=== PATIENT | female | born 1940 | race Caucasian/White ===

== ENCOUNTER → 2017-05-02 | Outpatient (CLI) | payer MEDICARE, BC ==
[~2017-05-02] MED LIST: CALTRATE PLUS T1 TAB PO; D3 PO; EVISTA60 MG PO; FISH OIL 1,0001 CA2 PO; FISH OIL 1,0001 CAP PO; ICAPS AREDS SO1 EACH PO; ICAPS MV TAB1 TAB.EC PO; MULTI VITAMIN1 EACH PO; NEXIUM PO; PANTOPRAZOLE SO40 MG PO; PRILOSEC PO; SIMVASTATIN40 MG PO; VITAMIN D-3 4001 TAB PO; VITAMIN D400 UNI2 PO
--- NOTE | ~2017-05-02 | MY29 ---
[facility] A Service of [facility] RADIOLOGY TEXT RESULTS PATIENT: FERNANDEZ THORPE LOCATION: [facility] : 39 UNIT #: [id number] AGE: [address]: Levi Newman MD SEX: F ORDER DR: [id number] [facility]. [place], [place] [address] [id number] O MR#: [id number] Acc #: [id number] NAME: FERNANDEZ THORPE : 1940 SEX: F STUDY DATE/TIME: 05/02/2017 9:26 UNIT: [facility] ROOM: STUDY DESCRIPTION: MY ADILSON SCREENING W/ CAD BILAT Attending Physician: Levi Newman M.D. Ordering Physician: Levi Newman M.D. Primary Care Physician: Levi Newman M.D. MEDICAL IMAGING REPORT This report is preliminary unless electronic signature is present EXAM Bilateral digital screening mammogram with CAD 05/02/2017 INDICATIONS 76-year-old female for routine screening. No reported problems. No personal or family history of breast cancer. No surgeries. TECHNIQUE CC and MLO views of the breasts were obtained reviewed with an approved CAD device COMPARISON 03/10/2016, 12/05/2014, 12/03/2013 FINDINGS Breast parenchyma is composed of scattered fibroglandular densities and the pattern is unchanged. Mole markers present. There is no new dominant nodule, mass or suspicious clustered microcalcifications. Benign vascular calcifications are present. IMPRESSION Benign screening mammogram with followup recommended. Patient's over the age of 40 are entered into a reminder system with target due date for the next mammogram. A result letter will be sent to the patient. BIRADS: 2 Benign findings. Dictated by... Nakul Harmon M.D. [facility] A Service [facility] RADIOLOGY TEXT RESULTS PATIENT: FERNANDEZ THORPE LOCATION: [facility] : 39 UNIT #: [id number] AGE: [address]: Levi Newman MD SEX: F ORDER DR: THIS IS AN ELECTRONICALLY VERIFIED REPORT Nakul Harmon M.D. at 05/03/2017 7:38 AM MAU/jazmin TD: 05/02/2017 18:34 JOB #: [id number] MEDICAL IMAGING REPORT Page 1 of 1 COPY
--- NOTE | ~2017-05-02 | BD1 ---
[facility] A Service of [facility] RADIOLOGY TEXT RESULTS PATIENT: FERNANDEZ THORPE LOCATION: [facility] : 39 UNIT #: [id number] AGE: [address]: Levi Newman MD SEX: F ORDER DR: [id number] [facility] [address] [facility] [place], [place] [address] [id number] O MR#: [id number] Acc #: [id number] NAME: FERNANDEZ THORPE : 1940 SEX: F STUDY DATE/TIME: 05/02/2017 9:46 UNIT: [facility] ROOM: STUDY DESCRIPTION: BD Dexa Bone Dens 1+ Site Attending Physician: Levi Newman M.D. Ordering Physician: Levi Newman M.D. Primary Care Physician: Levi Newman M.D. MEDICAL IMAGING REPORT This report is preliminary unless electronic signature is present EXAM Bone density scan HISTORY Osteoporosis. Nonsmoker. Postmenopausal. COMPARISON 03/14/15. FINDINGS Bone density scanning performed upper four lumbar vertebral segments and proximal left femur in 76-year-old postmenopausal female weighing 154 pounds. Bone mineral density L1-L4 overall is 0.806 gm/cm2 for T-score 2.2 standard deviations below mean for reference population normal young individuals and Z-score 0.3 standard deviations above the mean for age-matched population. Compared to prior examination, there has been a 0.3% increase in bone mineral density in this region since 2014. In the proximal left femur, total bone mineral density is 0.751 gm/cm2 for T-score 1.6 standard deviations below mean for reference population normal young individuals and Z-score 0.4 standard deviations above the mean for age-matched population. In the left femoral neck specifically, the bone mineral density is 0.653 gm/cm2 for T-score of 1.8 standard deviations below the mean for reference population normal young individuals and Z-score 0.4 standard deviations above the mean for age-matched population. Using total bone mineral density as a trending value, there has been a 3.6% decrease in proximal left femoral bone mineral density compared to February 2015 and this is felt to be statistically significant. IMPRESSION 1. Osteopenia in the upper four lumbar vertebral segments overall. Patient felt to be at increased risk for fracture. Treatment options may be considered. Continued surveillance is recommended. 2. Please trending data in body of report above. [facility] A Service of [facility] RADIOLOGY TEXT RESULTS PATIENT: FERNANDEZ THORPE LOCATION: [facility] : 39 UNIT #: [id number] AGE: [address]: Levi Newman MD SEX: F ORDER DR: Dictated by... Edwin Trejo M.D. THIS IS AN ELECTRONICALLY VERIFIED REPORT Edwin Trejo M.D. at 05/03/2017 5:00 PM Felix TD: 05/03/2017 08:18 JOB #: [id number] MEDICAL IMAGING REPORT Page 1 of 1 COPY
== END | disposition home or self-care (01) ==
LOC: CWCC 09:00
DX: Z12.31 Encounter for screening mammogram for malignant neoplasm of breast (principal); M85.80 Other specified disorders of bone density and structure, unspecified site; M85.88 Other specified disorders of bone density and structure, other site; Z78.0 Asymptomatic menopausal state
CPT/HCPCS: 77080; G0202